=== PATIENT | female | born 1985 | race Caucasian/White ===

== ENCOUNTER 2017-04-21 23:15 | Emergency (ER) | payer OTHER ==
[~2017-04-21] VITALS: Ht 175.3 cm; Wt 97.3 kg
[~2017-04-21 23:15] MED LIST: DOCU-30 PO; DOCU240C31 PO; FERR325T23 PO; IBUP200T48 PO; IBUP800T PO; LABE100T3 PO; OXYC-302 PO
[2017-04-21 23:17] VITALS: BP 124/83
== END 2017-04-22 00:34 | disposition home or self-care (01) ==
LOC: ED 23:59
DX: G51.0 Bell's palsy (principal); E03.9 Hypothyroidism, unspecified; I10 Essential (primary) hypertension
CPT/HCPCS: 99283; J7512

== ENCOUNTER 2017-07-31 19:17 | Emergency (ER) | payer OTHER ==
[~2017-07-31] VITALS: Ht 175.3 cm; Wt 102.6 kg
[~2017-07-31 19:17] MED LIST changes: +DOCU-131 PO; -DOCU-30 PO; +IBUP-1223 PO; -IBUP800T PO
[2017-07-31] MEDS ORDERED: SODIUM CHLORIDE 0.9% 1,000ML IVBOLUS ONE (19:30)
[2017-07-31] MEDS ORDERED: KETOROLAC 30 MG/1 ML IVPush ONE (19:30)
[2017-07-31] MEDS ORDERED: ONDANSETRON 2MG/ML, 2ML IVPush ONE ×2 (19:30→20:30)
[2017-07-31] MEDS ORDERED: SODIUM CHLORIDE FLUSH 10ML SYR IVF ONE (19:30)
[2017-07-31] MEDS ORDERED: ONDANSETRON 2MG/ML, 2ML ONE (19:51)
[2017-07-31] MEDS ORDERED: KETOROLAC 30 MG/1 ML ONE (19:51)
[2017-07-31 19:58] LABS: HEMATOCRIT 48.3 % (34.6-47.8); HEMOGLOBIN 16.4 g/dL (11.7-16.4); WHITE BLOOD COUNT 5.8 x10^3/uL (3.4-10)
[2017-07-31] MEDS ORDERED: DIPHENHYDRAMINE 50 MG/ML, 1ML IVPush ONE (20:00)
[2017-07-31] MEDS ORDERED: METOCLOPRAMIDE 5 MG/ML, 2ML IVPush ONE (20:00)
[2017-07-31 20:06] LABS: ASPARTATE AMINO TRANSFERASE 16 U/L (15-37); BLOOD UREA NITROGEN 19 mg/dL (7-18)
[2017-07-31] MEDS ORDERED: DIPHENHYDRAMINE 50 MG/ML, 1ML ONE (20:25)
[2017-07-31] MEDS ORDERED: METOCLOPRAMIDE 5 MG/ML, 2ML ONE (20:26)
[2017-07-31 20:28] LABS: RAPID INFLUENZA A Negative (Negative); RAPID INFLUENZA B Negative (Negative)
[2017-07-31 21:49] VITALS: BP 122/75
== END 2017-07-31 21:53 | disposition home or self-care (01) ==
LOC: ED 20:13
DX: B34.9 Viral infection, unspecified (principal); R51 Headache; R11.10 Vomiting, unspecified; E86.0 Dehydration; I10 Essential (primary) hypertension; G51.0 Bell's palsy; E03.9 Hypothyroidism, unspecified; Z87.891 Personal history of nicotine dependence
CPT/HCPCS: 36415; 80053; 83690; 84703; 85025; 87400; 96361; 96374; 96375; 99284; J1200; J1885; J2405; J2765; J7030